=== PATIENT | female | born 1945 | race Caucasian/White ===

== ENCOUNTER → 2018-08-14 | Outpatient (CLI) | payer MEDICARE ==
--- NOTE | 2018-08-17 11:12 | MM ---
Reason for exam: screening (asymptomatic). Last mammogram was performed 1 year ago. History: Patient is postmenopausal. Benign cyst aspiration of the left breast. Benign excisional biopsy of the right breast. Physical Findings: A clinical breast exam by your physician is recommended on an annual basis and results should be correlated with mammographic findings. MG 3D Screening Mammo W/Cad Bilateral CC and MLO view(s) were taken. Prior study comparison: August 01, 2017, bilateral MG 3d screening mammo w/cad. June 30, 2016, left breast MG work up mamm w CAD LT. The breast tissue is heterogeneously dense. This may lower the sensitivity of mammography. There are benign appearing round vascular calcifications bilaterally. There is no discrete abnormality. ASSESSMENT: Benign, BI-RAD 2 RECOMMENDATION: Routine screening mammogram of both breasts in 1 year.
== END ==
LOC: RADMAMWWP 09:44
PROVIDERS: ATTEND Family Medicine
DX: Z12.31 Encounter for screening mammogram for malignant neoplasm of breast (principal)
CPT/HCPCS: 77063; 77067

== ENCOUNTER → 2020-04-01 | Outpatient (CLI) | payer MEDICARE ==
--- NOTE | 2020-04-02 08:53 | US ---
EXAMINATION TYPE: US kidneys/renal and bladder DATE OF EXAM: 04/01/2020 COMPARISON: NONE CLINICAL HISTORY: 74-year-old female N18.2 chronic kidney disease, stage 2. TECHNIQUE: Multiple sonographic images of the kidneys and bladder are obtained. FINDINGS: EXAM MEASUREMENTS: Right Kidney: 10.6 x 3.7 x 3.8 cm Left Kidney: 10.0 x 4.0 x 3.5 cm No hydronephrosis on either side. Bladder: No gross abnormality Bilateral Jets seen: Yes IMPRESSION: No hydronephrosis.
== END | disposition home or self-care (01) ==
LOC: RADUSWWP 16:02
PROVIDERS: ATTEND Family Medicine
DX: N18.2 Chronic kidney disease, stage 2 (mild) (principal)
CPT/HCPCS: 76770

== ENCOUNTER → 2020-10-16 | Outpatient (CLI) | payer MEDICARE ==
--- NOTE | 2020-10-17 11:49 | MM ---
Reason for exam: screening (asymptomatic). Last mammogram was performed 1 year and 2 months ago. History: Patient is postmenopausal. Benign cyst aspiration of the left breast. Benign excisional biopsy of the right breast. Took hormonal contraceptives for 2 years. Physical Findings: A clinical breast exam by your physician is recommended on an annual basis and results should be correlated with mammographic findings. MG 3D Screening Mammo W/Cad Bilateral CC and MLO view(s) were taken. XCCL view(s) were taken of the right breast. Prior study comparison: August 29, 2019, bilateral MG 3d screening mammo w/cad. August 14, 2018, bilateral MG 3d screening mammo w/cad. The breast tissue is heterogeneously dense. This may lower the sensitivity of mammography. Focal asymmetry upper central right breast zone C. This finding is changed when compared with previous exams. ASSESSMENT: Incomplete: need additional imaging evaluation, BI-RAD 0 RECOMMENDATION: Special view mammogram of the right breast. If lesion persists on supplemental views, image directed ultrasound is recommended. [facility] will attempt to contact patient to return for supplemental views and ultrasound if indicated.
== END | disposition home or self-care (01) ==
LOC: RADMAMWWP 08:31
PROVIDERS: ATTEND Family Medicine
DX: Z12.31 Encounter for screening mammogram for malignant neoplasm of breast (principal); R92.8 Other abnormal and inconclusive findings on diagnostic imaging of breast
CPT/HCPCS: 77063; 77067

== ENCOUNTER → 2020-10-22 | Outpatient (CLI) | payer MEDICARE ==
--- NOTE | 2020-10-22 10:06 | MM ---
Reason for exam: additional evaluation requested from abnormal screening. Last mammogram was performed less than 1 month ago. History: Patient is postmenopausal. Benign cyst aspiration of the left breast. Benign excisional biopsy of the right breast. Took hormonal contraceptives for 2 years. Physical Findings: Nurse did not find any significant physical abnormalities on exam. MG 3D Work Up W/Cad RT Spot compression CC, spot compression MLO, and ML view(s) were taken of the right breast. Prior study comparison: October 16, 2020, bilateral MG 3d screening mammo w/cad. August 29, 2019, bilateral MG 3d screening mammo w/cad. The breast tissue is heterogeneously dense. This may lower the sensitivity of mammography. The focal asymmetry disperses on additional views. No significant new findings when compared with previous films. These results were verbally communicated with the patient and result sheet given to the patient on 10/22/20. ASSESSMENT: Benign, BI-RAD 2 RECOMMENDATION: Return to routine screening mammogram schedule for both breasts.
== END ==
LOC: RADMAMWWP 07:59
PROVIDERS: ATTEND Family Medicine
DX: R92.2 Inconclusive mammogram (principal); N64.89 Other specified disorders of breast; Z78.0 Asymptomatic menopausal state
CPT/HCPCS: 77065; G0279; 77061

== ENCOUNTER → 2021-01-20 | Outpatient (CLI) | payer MEDICARE ==
[2021-01-20 10:53] LABS: Appearance,Urine Clear (Clear); Bilirubin,Urine Negative (Negative); Blood,Urine Negative (Negative); Color,Urine Yellow; Glucose,Urine (UA) Negative (Negative); Ketones,Urine Negative (Negative); Leukocyte Esterase,Urine Negative (Negative); Nitrite,Urine Negative (Negative); Protein,Urine Negative (Negative); Specific Gravity,Urine 1.016 (1.001-1.035); Urobilinogen,Urine <2.0 mg/dL (<2.0)
[2021-01-20 11:21] LABS: Creatinine,Urine Random 91.5 mg/dL; Protein/Creatinine Ratio,Urine 0.087
[2021-01-20 17:04] LABS: Basophils # (A) 0.11 X 10*3/uL (0.00-0.10); Basophils % (A) 1.6 %; Eosinophils # (A) 0.18 X 10*3/uL (0.04-0.35); Eosinophils % (A) 2.5 %; HCT 39.1 % (37.2-46.3); Lymphocytes # (A) 1.83 X 10*3/uL (0.90-5.00); Lymphocytes % (A) 25.9 %; MCH 28.6 pg (27.0-32.0); MCHC 30.7 g/dL (32.0-37.0); MCV 93.1 fL (80.0-97.0); Mean Platelet Volume 10.3 fL (9.5-12.2); Monocytes # (A) 0.76 X 10*3/uL (0.20-1.00); Monocytes % (A) 10.7 %; Neutrophils # (A) 4.17 X 10*3/uL (1.80-7.70); Platelet Count 235 X 10*3/uL (140-440); RDW 12.8 % (11.5-14.5); WBC 7.07 X 10*3/uL (4.50-10.00)
[2021-01-20 17:11] LABS: % Iron Saturation 21.15 (12.00-45.00); African American GFR (CKD) 64.7 (60.0-200.0); Anion Gap 8.3 mmol/L (4.00-12.00); Calcium 9.3 mg/dL (8.7-10.3); Carbon Dioxide 25.7 mmol/L (21.6-31.8); Magnesium 2.1 mg/dL (1.5-2.4); Non-African American GFR(CKD) 55.8 (60.0-200.0); Phosphorus 3.6 mg/dL (2.4-5.1); Potassium 4.3 mmol/L (3.5-5.5); Uric Acid 4.8 mg/dL (2.9-7.7)
[2021-01-20 17:19] LABS: Ferritin 112.3 ng/mL (10.0-291.0)
== END | disposition home or self-care (01) ==
LOC: LABWHC1 08:22
PROVIDERS: ATTEND Nurse Practitioner Adult Health
DX: N18.30 Chronic kidney disease, stage 3 unspecified (principal); E55.9 Vitamin D deficiency, unspecified; D64.9 Anemia, unspecified; N25.81 Secondary hyperparathyroidism of renal origin; R80.9 Proteinuria, unspecified; M10.9 Gout, unspecified; N39.0 Urinary tract infection, site not specified
CPT/HCPCS: 36415; 80048; 81003; 82306; 82570; 82728; 83540; 83550; 83735; 83970; 84100; 84156; 84550; 85025

== ENCOUNTER → 2021-10-19 | Outpatient (CLI) | payer MEDICARE ==
--- NOTE | 2021-10-21 09:22 | MM ---
Reason for exam: screening (asymptomatic). Last mammogram was performed 1 year ago. History: Patient is postmenopausal. Benign cyst aspiration of the left breast. Benign excisional biopsy of the right breast. Took hormonal contraceptives for 2 years. Physical Findings: A clinical breast exam by your physician is recommended on an annual basis and results should be correlated with mammographic findings. MG 3D Screening Mammo W/Cad Bilateral CC and MLO view(s) were taken. XCCL view(s) were taken of the right breast. Prior study comparison: October 22, 2020, right breast MG 3d work up w/cad RT. October 16, 2020, bilateral MG 3d screening mammo w/cad. The breast tissue is heterogeneously dense. This may lower the sensitivity of mammography. Stable benign calcifications. There is no discrete abnormality. No significant changes when compared with prior studies. ASSESSMENT: Benign, BI-RAD 2 RECOMMENDATION: Routine screening mammogram of both breasts in 1 year.
== END | disposition home or self-care (01) ==
LOC: RADMAMWWP 09:28
PROVIDERS: ATTEND Family Medicine
DX: Z12.31 Encounter for screening mammogram for malignant neoplasm of breast (principal); Z78.0 Asymptomatic menopausal state
CPT/HCPCS: 77063; 77067

== ENCOUNTER → 2022-01-15 | Outpatient (CLI) | payer MEDICARE ==
[2022-01-15 08:33] LABS: Appearance,Urine Clear (Clear); Bilirubin,Urine Negative (Negative); Blood,Urine Small (Negative); Color,Urine Yellow; Glucose,Urine (UA) Negative (Negative); Hyaline Casts,Urine 1 /lpf (0-2); Ketones,Urine Negative (Negative); Leukocyte Esterase,Urine Negative (Negative); Mucus,Urine Rare /hpf; Nitrite,Urine Negative (Negative); Protein,Urine Negative (Negative); RBC,Urine 1 /hpf (0-5); Specific Gravity,Urine 1.015 (1.001-1.035); Squamous Epithelial Cell,Urine <1 /hpf (0-4); Urobilinogen,Urine <2.0 mg/dL (<2.0); WBC,Urine 1 /hpf (0-5)
[2022-01-15 09:09] LABS: Creatinine,Urine Random 105.6 mg/dL
[2022-01-15 11:15] LABS: % Iron Saturation 14.43 (12.00-45.00); African American GFR (CKD) 57.3 (60.0-200.0); Anion Gap 10.6 mmol/L (10.00-18.00); BUN/Creat Ratio 17.55 Ratio (12.00-20.00); Blood Urea Nitrogen 19.3 mg/dL (9.0-27.0); Calcium 9.5 mg/dL (8.7-10.3); Carbon Dioxide 25.4 mmol/L (20.0-27.5); Magnesium 2.3 mg/dL (1.5-2.4); Non-African American GFR(CKD) 49.4 (60.0-200.0); Phosphorus 3.7 mg/dL (2.4-5.1); Potassium 4.3 mmol/L (3.5-5.5); Uric Acid 5.1 mg/dL (2.9-7.7)
[2022-01-15 11:33] LABS: Albumin 4.4 g/dL (3.8-4.9)
[2022-01-15 11:38] LABS: Basophils # (A) 0.09 X 10*3/uL (0.00-0.10); Basophils % (A) 1.3 %; Eosinophils # (A) 0.14 X 10*3/uL (0.04-0.35); HCT 38.5 % (37.2-46.3); HGB 11.7 g/dL (12.0-15.0); Immature Grans, Automated 0.3 %; Lymphocytes % (A) 26.8 %; MCH 28.1 pg (27.0-32.0); MCHC 30.4 g/dL (32.0-37.0); MCV 92.3 fL (80.0-97.0); Mean Platelet Volume 9.8 fL (9.5-12.2); Monocytes # (A) 0.71 X 10*3/uL (0.20-1.00); NRBC Per 100 WBC 0 /100 WBCS (0.0-0.0); Neutrophils # (A) 4.23 X 10*3/uL (1.80-7.70); Neutrophils % (A) 59.6 %; Platelet Count 248 X 10*3/uL (140-440); RBC 4.17 X 10*6/uL (4.10-5.20); WBC 7.09 X 10*3/uL (4.50-10.00)
== END | disposition home or self-care (01) ==
LOC: LABWHC1 07:18
PROVIDERS: ATTEND Nurse Practitioner Adult Health
DX: E55.9 Vitamin D deficiency, unspecified (principal); N18.31 Chronic kidney disease, stage 3a; N25.81 Secondary hyperparathyroidism of renal origin; M10.9 Gout, unspecified; N39.0 Urinary tract infection, site not specified; D64.9 Anemia, unspecified; R80.9 Proteinuria, unspecified
CPT/HCPCS: 36415; 80048; 81001; 82040; 82306; 82570; 82728; 83540; 83550; 83735; 83970; 84100; 84156; 84550; 85025

== ENCOUNTER → 2024-11-13 | Outpatient (CLI) | payer MEDICARE ==
--- NOTE | 2024-11-13 08:38 | MM ---
Reason for Exam: Screening (asymptomatic). Last screening mammogram was performed 12 month(s) ago. Patient History: Menarche at age 17. First Full-Term at age 23. Postmenopausal. Patient has history of breast feeding. Patient used Hormonal Contraceptives for 2 years. Benign Cyst Aspiration on the left side. Benign Excisional Biopsy on the right side. Risk Values: Cynthia 5 year model risk: 1.7%. NCI Lifetime model risk: 3.2%. Prior Study Comparison: 10/19/2021 Bilateral Screening Mammogram, [facility]. 10/21/2022 Bilateral MG 3D screening mammo w/cad, [facility]. 10/24/2023 Bilateral MG 3D screening mammo w/cad, [facility]. Tissue Density: The breasts are heterogeneously dense, which may obscure small masses. Findings: Analyzed By CAD. There is no suspicious group of microcalcifications or new suspicious mass in either breast. Tiny appearing calcifications. Overall Assessment: Benign, BI-RAD 2 Management: Screening Mammogram of both breasts in 1 year. . Patient should continue monthly self-breast exams. A clinical breast exam by your physician is recommended on an annual basis. This exam should not preclude additional follow-up of suspicious palpable abnormalities. Note on Cynthia scores and lifetime risk: 1. A Cynthia score greater than 3% is considered moderate risk. If this is the case, consider specialist referral to assess eligibility for a risk reducing agent. 2. If overall lifetime risk for the development of breast cancer is 20% or higher, the patient may qualify for future screening with alternating mammogram and breast MRI. [facility], , 11/13/2024 8:35 AM. Electronically signed and approved by: Zhou Goldman M.D. [facility]
== END | disposition home or self-care (01) ==
LOC: RADMAMWWP 07:18
PROVIDERS: ATTEND Family Medicine
DX: Z12.31 Encounter for screening mammogram for malignant neoplasm of breast (principal); R92.333 Mammographic heterogeneous density, bilateral breasts; Z78.0 Asymptomatic menopausal state; Z92.0 Personal history of contraception
CPT/HCPCS: 77063; 77067